=== PATIENT | female | born 1965 | race Caucasian/White ===

== ENCOUNTER → 2024-05-03 16:11 | Outpatient (REF) | payer BC, SELFPAY | LOC: WDC 16:11 | PROVIDERS: ATTENDING PHYSICIAN Nurse Practitioner Adult Health; FAMILY PHYSICIAN Nurse Practitioner Adult Health | DX: Z12.31 Encounter for screening mammogram for malignant neoplasm of breast (principal) | CPT/HCPCS: 77063; 77067 ==

== ENCOUNTER → 2024-05-24 16:10 | Outpatient (REF) | payer BC, SELFPAY | LOC: RAD 16:10 | PROVIDERS: ATTENDING PHYSICIAN Nurse Practitioner Adult Health | DX: M25.562 Pain in left knee (principal) | CPT/HCPCS: 73564 ==

== ENCOUNTER → 2024-10-12 14:58 | Outpatient (REF) | payer BC, SELFPAY | LOC: HWEVLT 14:58 | PROVIDERS: ATTENDING PHYSICIAN Radiology Vascular & Interventional Radiology | DX: I83.892 Varicose veins of left lower extremity with other complications (principal) | CPT/HCPCS: 93971 ==

== ENCOUNTER → 2024-12-29 11:32 | Outpatient (REF) | payer BC, SELFPAY | LOC: RAD 11:32 | PROVIDERS: ATTENDING PHYSICIAN Nurse Practitioner Adult Health | DX: L81.9 Disorder of pigmentation, unspecified (principal) | CPT/HCPCS: 93922; 93925 ==

== ENCOUNTER → 2025-05-04 15:35 | Outpatient (REF) | payer BC, SELFPAY | LOC: WDC 15:35 | PROVIDERS: ATTENDING PHYSICIAN Nurse Practitioner Adult Health; FAMILY PHYSICIAN Family Medicine | DX: Z12.31 Encounter for screening mammogram for malignant neoplasm of breast (principal) | CPT/HCPCS: 77063; 77067 ==